=== PATIENT | female | born 1970 | race Caucasian/White ===

== ENCOUNTER 2017-02-16 13:54 | Emergency (ER) | payer OTHER ==
[2017-02-16 13:57] VITALS: BMI 28.3
--- NOTE | 2017-02-16 14:11 | ED PDOC ---
Arrival/HPI - General Chief Complaint: Chest Pain Time Seen by Provider: 02/16/17 14:03 Historian: Patient - History of Present Illness Narrative History of Present Illness (Text): 02/16/17 14:11 A 46 year old female, whose past medical history includes hyperlipidemia, presents to the emergency department complaining of intermittent chest pain for the past few days. 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 Patient states she last experienced the pain at 10:00 this morning. Patient is unable to describe her pain and reports it last minutes at a time. When asked patient states her pain is not associated with cough or food digestion but is unsure if it could be anxiety. Patient denies any trauma, fever, nausea, vomiting, diarrhea, abdominal pain, shortness of breath or any other complaints. PMD: Dr. Wolf Time/Duration: < week, Other (10:00 this morning) Symptom Course: Intermittent Quality: Other Context: Home Past Medical History - Provider Review Nursing Documentation Reviewed: Yes - Infectious Disease Hx of Infectious Diseases: None - Tetanus Immunization Tetanus Immunization: Up to Date - Cardiac Hx Cardiac Disorders: No - Pulmonary Hx Respiratory Disorders: Yes Hx Asthma: Yes - Neurological Hx Neurological Disorder: No - HEENT Hx HEENT Disorder: No - Renal Hx Renal Disorder: No - Endocrine/Metabolic Hx Endocrine Disorders: No - Hematological/Oncological Hx Blood Disorders: No - Integumentary Hx Dermatological Disorder: No - Musculoskeletal/Rheumatological Hx Musculoskeletal Disorders: No - Gastrointestinal Hx Gastrointestinal Disorders: Yes Hx Gall Bladder Disease: Yes - Genitourinary/Gynecological Hx Genitourinary Disorders: No - Psychiatric Hx Psychophysiologic Disorder: No Hx Substance Use: No - Surgical History Hx Cholecystectomy: Yes - Anesthesia Hx Anesthesia: Yes Hx Anesthesia Reactions: No Hx Malignant Hyperthermia: No - Suicidal Assessment Feels Threatened In Home Enviroment: No Family/Social History - Physician Review Nursing Documentation Reviewed: Yes Family/Social History: CAD/[place] Smoking Status: Never Smoked Hx Alcohol Use: No Hx Substance Use: No Hx Substance Use Treatment: No Allergies/Home Meds Allergies/Adverse Reactions: Allergies aminophylline Allergy (Verified 02/16/17 14:00) RASH aspirin Allergy (Verified 02/16/17 14:00) RASH banana Allergy (Verified 02/16/17 14:00) RASH diclofenac potassium [From Cataflam] Allergy (Verified 02/16/17 14:00) RASH diclofenac sodium [From Voltaren] Allergy (Verified 02/16/17 14:00) RASH zena Allergy (Verified 02/16/17 14:00) RASH Penicillins Allergy (Verified 02/16/17 14:00) RASH potassium Allergy (Verified 02/16/17 14:00) RASH seafood Allergy (Mild, Uncoded 02/16/17 14:00) RASH Home Medications: Home Meds Medication Instructions Recorded Confirmed No Known Home Med [No Known Home 07/06/15 02/16/17 Med] Review of Systems - Physician Review All systems were reviewed & negative as marked: Yes - Review of Systems Constitutional: absent: Fevers Respiratory: absent: SOB Cardiovascular: Chest Pain Gastrointestinal: absent: Abdominal Pain, Diarrhea, Nausea, Vomiting Physical Exam Vital Signs Pulse Resp BP Pulse Ox 02/16/17 13:55 64 20 131/86 100 Appearance: Positive for: Well-Appearing, Non-Toxic, Comfortable Pain Distress: None Mental Status: Positive for: Alert and Oriented X 3 - Systems Exam Head: Present: Atraumatic, Normocephalic Pupils: Present: PERRL Extroacular Muscles: Present: EOMI Conjunctiva: Present: Normal Mouth: Present: Moist Mucous Membranes Neck: Present: Normal Range of Motion Respiratory/Chest: Present: Clear to Auscultation, Good Air Exchange. No: Respiratory Distress, Accessory Muscle Use, Tender to Palpation Cardiovascular: Present: Regular Rate and Rhythm, Normal S1, S2. No: Murmurs Abdomen: Present: Normal Bowel Sounds. No: Tenderness, Distention, Peritoneal Signs Back: Present: Normal Inspection Upper Extremity: Present: Normal Inspection. No: Cyanosis, Edema Lower Extremity: Present: Normal Inspection, NORMAL PULSES. No: Edema, CALF TENDERNESS Neurological: Present: GCS=15, CN II-XII Intact, Speech Normal Skin: Present: Warm, Dry, Normal Color. No: Rashes Psychiatric: Present: Alert, Oriented x 3, Normal Insight, Normal Concentration Medical Decision Making ED Course and Treatment: 02/16/17 14:11 Impression: A 46 year old female with intermittent chest pain. Differential Diagnosis included but are not limited to: Chest pain rule out ACS vs. Anxiety Plan: -- Chest xray -- EKG -- Labs -- Reassess and disposition Progress Notes: EKG shows NSR at [address]-segment elevations, normal intervals. Interpreted by me. 02/16/17 15:56 Labs reviewed. Troponin negative. Case discussed with Dr. Wolf who would like patient to stay in the hospital of observation considering her clinical picture and family history of CAD. Patient agrees to stay in the hospital. - Lab Interpretations Lab Results: 02/16/17 14:30 02/16/17 14:30 Lab Results 02/16/17 14:30: WBC 4.9, RBC 4.19, Hgb 12.3, Hct 36.5, MCV 87.1, MCH 29.4, MCHC 33.7, RDW 13.7, Plt Count 321, MPV 11.6 H, Gran % 43.2 L, Lymph % (Auto) 45.6 H , [place] % (Auto) 9.4 H, Eos % (Auto) 1.4 L, Baso % (Auto) 0.4, Gran # 2.10, Lymph # 2.2, [place] # 0.5, Eos # 0.1, Baso # 0.02, Sodium 140, Potassium 3.6, Chloride 103, Carbon Dioxide 27, Anion Gap 14, BUN 13, Creatinine 0.6, Est GFR ( Amer) > 60, Est GFR (Non-Af Amer) > 60, Random Glucose 83, Calcium 9.1, Magnesium 2.0, Total Bilirubin 0.6, AST 29, ALT 8, Alkaline Phosphatase 69, Lactate Dehydrogenase 392, Total Creatine Kinase 58, Troponin I < 0.01, Total Protein 7.7, Albumin 4.0, Globulin 3.7, Albumin/Globulin Ratio 1.1 I have reviewed the lab results: Yes Interpretation: No clinic. lab abnormalty - RAD Interpretation Radiology Orders: 02/16/17 14:28 CHEST PORTABLE [RAD] Stat CXR nl. [employer] Manager: ED Physician - Scribe Statement The provider has reviewed the documentation as recorded by the Kalaniibparamjit Esquivel Provider Scribe Attestation: All medical record entries made by the Scribe were at my direction and personally dictated by me. I have reviewed the chart and agree that the record accurately reflects my personal performance of the history, physical exam, medical decision making, and the department course for this patient. I have also personally directed, reviewed, and agree with the discharge instructions and disposition. Disposition/Present on Arrival - Present on Arrival Any Indicators Present on Arrival: No History of DVT/PE: No History of Uncontrolled Diabetes: No Urinary Catheter: No History of Decub. Ulcer: No History Surgical Site Infection Following: None - Disposition Have Diagnosis and Disposition been Completed?: Yes Diagnosis: Chest pain Disposition: HOSPITALIZED Disposition Time: 15:57 Patient Plan: Observation Condition: FAIR Discharge Instructions (ExitCare): Chest Pain (ED)
[2017-02-16 14:39] LABS: ADD MANUAL DIFF? NO
[2017-02-16 14:46] LABS: BASO # 0.02 K/mm3 (0.0-2.0); BASO % 0.4 % (0.0-3.0); EOS # 0.1 (0.0-0.7); EOS % 1.4 % (1.5-5.0); GRAN % 43.2 % (50.0-68.0); HEMATOCRIT 36.5 % (36.0-48.0); LYMPH # 2.2 (1.2-3.4); LYMPH % 45.6 % (22.0-35.0); MEAN CELL VOLUME 87.1 fL (80.0-105.0); MEAN CORPUSCULAR HEMOGLOBIN 29.4 pg (25.0-35.0); MEAN CORPUSCULAR HGB CONC 33.7 g/dl (31.0-37.0); MEAN PLATELET VOLUME 11.6 fl (7.0-11.0); MONO # 0.5 (0.1-0.6); MONO % 9.4 % (1.0-6.0); PLATELET COUNT 321 10^3/uL (120.0-450.0); RED CELL DISTRIBUTION WIDTH 13.7 % (11.5-14.5); WHITE BLOOD COUNT 4.9 10^3/ul (4.5-11.0)
[2017-02-16 14:50] VITALS: O2SAT 100
[2017-02-16 14:52] LABS: ALB/GLOB RATIO 1.1 (1.1-1.8); ALKALINE PHOSPHATASE 69 U/L (38-133); ALT/SGPT 8 U/L (7-56); AST/SGOT 29 U/L (15-39); BILIRUBIN,TOTAL 0.6 mg/dL (0.2-1.3); BLOOD UREA NITROGEN 13 mg/dL (7-21); CALCIUM 9.1 mg/dL (8.4-10.5); CARBON DIOXIDE 27 mmol/L (21-33); CHLORIDE 103 mmol/L (98-107); GFR AFRICAN-AMERICAN > 60; GLUCOSE,RANDOM 83 mg/dL (70-110); POTASSIUM 3.6 mmol/L (3.6-5.0); SODIUM 140 mmol/L (132-148); TOTAL PROTEIN 7.7 g/dL (5.8-8.3)
[2017-02-16 15:09] LABS: TROPONIN I < 0.01 ng/mL
[2017-02-16 17:56] VITALS: BP 118/79; PULSE 62; RESP 18; TEMP 98.2
--- NOTE | 2017-02-17 07:52 | RAD ---
HISTORY: chest pain COMPARISON: No prior. FINDINGS: LUNGS: The lungs are well inflated and clear. PLEURA: No significant pleural effusion identified, no pneumothorax apparent. CARDIOVASCULAR: Normal. OSSEOUS STRUCTURES: No significant abnormalities. VISUALIZED UPPER ABDOMEN: Normal. OTHER FINDINGS: None. IMPRESSION: No active pulmonary disease.
--- NOTE | 2017-02-17 12:09 | CARD ---
APPROVED REPORT EKG Measurement Heart [id number] 130P44 [id number] <Conclusion> Normal sinus rhythm Cannot rule out Anterior infarct, age undetermined Abnormal ECG
== END 2017-02-16 17:30 | disposition left against medical advice (07) ==
LOC: ED 13:54 → UNDOADMOB 15:55 → ERH 15:55 → ED 17:30
DX: R07.9 Chest pain, unspecified (principal); Z82.49 Family history of ischemic heart disease and other diseases of the circulatory system

== ENCOUNTER 2017-05-19 05:38 | Emergency (ER) | payer OTHER ==
[2017-05-19 05:44] VITALS: BMI 27.3
[2017-05-19] MEDS ORDERED: DiphenhydrAMINE 50 mg/ml Inj IVP ONE (05:47)
[2017-05-19 05:48] VITALS: TEMP 97; O2SAT 100
--- NOTE | 2017-05-19 05:48 | ED PDOC ---
Arrival/HPI - General Time Seen by Provider: 05/19/17 05:45 Historian: Patient - History of Present Illness Narrative History of Present Illness (Text): 05/19/17 05:45 Caity Anderson is a 46 year old female who presents to the emergency department complaining of an allergic reaction after eating an eggplant about an hour ago. Patient indicates that she has diffuse hives with redness and experiences shortness of breath. Patient denies any fever, chills, chest pain, vomiting, diarrhea, urinary symptoms, back pain, neck pain, dizziness, or any other complaints. Time/Duration: 1 hour Symptom Onset: Sudden Symptom Course: Unchanged Severity Level: Mild Activities at Onset: Eating Context: Home Past Medical History - Provider Review Nursing Documentation Reviewed: Yes - Infectious Disease Hx of Infectious Diseases: None - Tetanus Immunization Tetanus Immunization: Up to Date - Cardiac Hx Cardiac Disorders: No - Pulmonary Hx Respiratory Disorders: Yes Hx Asthma: Yes - Neurological Hx Neurological Disorder: No - HEENT Hx HEENT Disorder: No - Renal Hx Renal Disorder: No - Endocrine/Metabolic Hx Endocrine Disorders: No - Hematological/Oncological Hx Blood Disorders: No - Integumentary Hx Dermatological Disorder: No - Musculoskeletal/Rheumatological Hx Musculoskeletal Disorders: No - Gastrointestinal Hx Gastrointestinal Disorders: Yes Hx Gall Bladder Disease: Yes - Genitourinary/Gynecological Hx Genitourinary Disorders: No - Psychiatric Hx Psychophysiologic Disorder: No Hx Substance Use: No - Surgical History Hx Cholecystectomy: Yes - Anesthesia Hx Anesthesia: Yes Hx Anesthesia Reactions: No Hx Malignant Hyperthermia: No - Suicidal Assessment Feels Threatened In Home Enviroment: No Family/Social History - Physician Review Nursing Documentation Reviewed: Yes Family/Social History: No Known Family HX Smoking Status: Never Smoked Hx Alcohol Use: No Hx Substance Use: No Hx Substance Use Treatment: No Allergies/Home Meds Allergies/Adverse Reactions: Allergies aminophylline Allergy (Verified 02/16/17 14:00) RASH aspirin Allergy (Verified 02/16/17 14:00) RASH banana Allergy (Verified 02/16/17 14:00) RASH diclofenac potassium [From Cataflam] Allergy (Verified 02/16/17 14:00) RASH diclofenac sodium [From Voltaren] Allergy (Verified 02/16/17 14:00) RASH zena Allergy (Verified 02/16/17 14:00) RASH Penicillins Allergy (Verified 02/16/17 14:00) RASH potassium Allergy (Verified 02/16/17 14:00) RASH seafood Allergy (Mild, Uncoded 02/16/17 14:00) RASH Review of Systems - Physician Review All systems were reviewed & negative as marked: Yes - Review of Systems Constitutional: Other (Allergic reaction). absent: Fevers, Night Sweats Eyes: absent: Vision Changes ENT: absent: Hearing Changes Respiratory: SOB. absent: Cough Cardiovascular: absent: Chest Pain Gastrointestinal: absent: Abdominal Pain Genitourinary Female: absent: Dysuria Musculoskeletal: absent: Arthralgias Skin: Other (hives with redness) Neurological: absent: Headache Hemo/Lymphatic: absent: Adenopathy Psychiatric: absent: Anxiety Physical Exam Vital Signs Reviewed: Yes Vital Signs Temp Pulse Resp BP Pulse Ox 05/19/17 05:44 97 F L 90 18 130/82 100 Temperature: Hypothermic Blood Pressure: Normal Pulse: Regular Respiratory Rate: Normal Appearance: Positive for: Well-Appearing, Non-Toxic, Comfortable Pain Distress: None Mental Status: Positive for: Alert and Oriented X 3 - Systems Exam Head: Present: Atraumatic, Normocephalic Pupils: Present: PERRL Extroacular Muscles: Present: EOMI Conjunctiva: Present: Normal Mouth: Present: Moist Mucous Membranes Neck: Present: Normal Range of Motion Respiratory/Chest: Present: Clear to Auscultation, Good Air Exchange. No: Respiratory Distress, Accessory Muscle Use Cardiovascular: Present: Regular Rate and Rhythm, Normal S1, S2. No: Murmurs Abdomen: Present: Normal Bowel Sounds. No: Tenderness, Distention, Peritoneal Signs Back: Present: Normal Inspection Upper Extremity: Present: Normal Inspection. No: Cyanosis, Edema Lower Extremity: Present: Normal Inspection. No: Edema Neurological: Present: GCS=15, CN II-XII Intact, Speech Normal Skin: Present: Erythematous, Other (Urticaria) Psychiatric: Present: Alert, Oriented x 3, Normal Insight, Normal Concentration Medical Decision Making ED Course and Treatment: 05/19/17 05:45 Impression: 46 year old female complaining of an allertgic reaction with urticaria and shortness of breath after eating an eggplant about an hour ago. Differential Diagnosis included but are not limited to: Allergic Reaction Plan: -- Benadryl and Solu-medrol -- Reassess and disposition Prior Visits: Notes and results from previous visits were reviewed. Patient last seen in the ED on 02/16/17 for intermittent chest pain for a few days. Patient was admitted to hospitalist care for further evaluation. Progress Notes: Re-evaluation Time: 06:58 Reassessment Condition: Re-examined, Improved - Medication Orders Current Medication Orders: Discontinued Medications Albuterol/Ipratropium (Duoneb 3 Mg/0.5 Mg (3 Ml) Ud) 3 ml IH STAT STA Stop: 05/19/17 06:08 Last Admin: 05/19/17 06:26 Dose: Not Given Non-Admin Reason: Patient Refused Diphenhydramine HCl (Benadryl) 25 mg IVP ONCE ONE Stop: 05/19/17 05:48 Last Admin: 05/19/17 06:10 Dose: 25 mg Epinephrine HCl (Epinephrine) 0.3 mg SC STAT STA Stop: 05/19/17 06:09 Last Admin: 05/19/17 06:20 Dose: 0.3 mg Epinephrine HCl (Epinephrine) Confirm Administered Dose 1 mg .ROUTE .STK-MED ONE Stop: 05/19/17 06:14 Last Admin: 05/19/17 06:25 Dose: Famotidine (Pepcid 20mg/50ml Premix) 20 mg in 50 mls @ 100 mls/hr IVPB STAT STA Stop: 05/19/17 06:39 Last Admin: 05/19/17 06:28 Dose: 100 mls/hr Methylprednisolone (Solu-Medrol) 125 mg IVP ONCE ONE Stop: 05/19/17 05:48 Last Admin: 05/19/17 06:11 Dose: 125 mg - Scribe Statement The provider has reviewed the documentation as recorded by the Tae Ordoñez Provider Scribe Attestation: All medical record entries made by the Tae were at my direction and personally dictated by me. I have reviewed the chart and agree that the record accurately reflects my personal performance of the history, physical exam, medical decision making, and the department course for this patient. I have also personally directed, reviewed, and agree with the discharge instructions and disposition. Disposition/Present on Arrival - Present on Arrival Any Indicators Present on Arrival: No History of DVT/PE: No History of Uncontrolled Diabetes: No Urinary Catheter: No History Surgical Site Infection Following: None - Disposition Have Diagnosis and Disposition been Completed?: Yes Diagnosis: Allergic reaction to food Disposition: HOME/ ROUTINE Disposition Time: 06:59 Condition: GOOD Discharge Instructions (ExitCare): Urticaria (GEN) Prescriptions: Famotidine [Pepcid] 20 mg PO BID #10 tab predniSONE [predniSONE Tab] 20 mg PO TID #15 tab hydrOXYzine Pamoate [Vistaril] 25 mg PO QID #12 cap
[2017-05-19] MEDS ORDERED: Albuterol-Ipratrop 3 mg / 0.5 (3 ml) UD IH STA (06:07)
[2017-05-19] MEDS ORDERED: EPINEPHrine 1 mg/ml (1:1000) Inj SC STA (06:08)
[2017-05-19] MEDS ORDERED: Famotidine 20mg/50ml 20 MG/50 ML BAG IVPB STA (06:10)
[2017-05-19] MEDS ORDERED: EPINEPHrine 1 mg/ml (1:1000) Inj ONE (06:13)
[2017-05-19 07:13] VITALS: BP 113/61; PULSE 68; RESP 17
== END 2017-05-19 07:11 | disposition home or self-care (01) ==
LOC: ED 05:38
DX: T78.1XXA Other adverse food reactions, not elsewhere classified, initial encounter (principal); L50.9 Urticaria, unspecified; X58.XXXA Exposure to other specified factors, initial encounter
CPT/HCPCS: 96365; 96372; 96375; 99283; J0171; J1200; J2930

== ENCOUNTER 2017-07-07 17:31 | Observation (INO) | payer OTHER ==
[2017-07-07 17:31] VITALS: BMI 27.3
--- NOTE | 2017-07-07 18:00 | ED PDOC ---
Arrival/HPI - General Chief Complaint: Chest Pain Time Seen by Provider: 07/07/17 17:35 Historian: Patient - History of Present Illness Narrative History of Present Illness (Text): 07/07/17 17:50 A 46 year old female, whose past medical history includes hyperlipidemia, allergies, and asthma presents to the emergency department complaining of chest pain, which began prior to entering the emergency department. The patient states she was chasing after a bus and began to have palpitations with associated chest pains and shortness of breath. She notes the chest pain has subsided over a period of time, but still comes and goes to a mild extent. The patient admits to knowing her family has a history of heart disease. She denies any fever, nausea, vomiting, headaches, body aches, vision changes, or any other complaints at this time. PMD: Dr. Wolf Symptom Onset: Sudden Symptom Course: Unchanged Activities at Onset: Significant (Trying to catch the bus) Context: Street, Pedestrian Past Medical History - Provider Review Nursing Documentation Reviewed: Yes - Infectious Disease Hx of Infectious Diseases: None - Tetanus Immunization Tetanus Immunization: Up to Date - Cardiac Hx Cardiac Disorders: No - Pulmonary Hx Respiratory Disorders: Yes Hx Asthma: Yes - Neurological Hx Neurological Disorder: No - HEENT Hx HEENT Disorder: No - Renal Hx Renal Disorder: No - Endocrine/Metabolic Hx Endocrine Disorders: No - Hematological/Oncological Hx Blood Disorders: No - Integumentary Hx Dermatological Disorder: No - Musculoskeletal/Rheumatological Hx Musculoskeletal Disorders: No - Gastrointestinal Hx Gastrointestinal Disorders: Yes Hx Gall Bladder Disease: Yes - Genitourinary/Gynecological Hx Genitourinary Disorders: No - Psychiatric Hx Psychophysiologic Disorder: No Hx Substance Use: No - Surgical History Hx Cholecystectomy: Yes - Anesthesia Hx Anesthesia: Yes Hx Anesthesia Reactions: No Hx Malignant Hyperthermia: No - Suicidal Assessment Feels Threatened In Home Enviroment: No Family/Social History - Physician Review Nursing Documentation Reviewed: Yes Family/Social History: Other (Heart disease) Smoking Status: Never Smoked Hx Alcohol Use: No Hx Substance Use: No Hx Substance Use Treatment: No Allergies/Home Meds Allergies/Adverse Reactions: Allergies aminophylline Allergy (Verified 02/16/17 14:00) RASH aspirin Allergy (Verified 02/16/17 14:00) RASH banana Allergy (Verified 02/16/17 14:00) RASH diclofenac potassium [From Cataflam] Allergy (Verified 02/16/17 14:00) RASH diclofenac sodium [From Voltaren] Allergy (Verified 02/16/17 14:00) RASH zena Allergy (Verified 02/16/17 14:00) RASH Penicillins Allergy (Verified 02/16/17 14:00) RASH potassium Allergy (Verified 02/16/17 14:00) RASH seafood Allergy (Mild, Uncoded 02/16/17 14:00) RASH Review of Systems - Physician Review All systems were reviewed & negative as marked: Yes - Review of Systems Constitutional: absent: Fevers Eyes: absent: Vision Changes Respiratory: SOB Cardiovascular: Chest Pain, Palpitations Gastrointestinal: absent: Nausea, Vomiting Musculoskeletal: absent: Back Pain, Neck Pain Neurological: absent: Headache Physical Exam Vital Signs Reviewed: Yes Vital Signs Temp Pulse Resp BP Pulse Ox 07/07/17 19:04 71 111/87 100 07/07/17 17:32 18 100 07/07/17 17:31 97.9 F 89 18 150/104 H 99 Temperature: Afebrile Blood Pressure: Hypertensive Pulse: Regular Respiratory Rate: Normal Appearance: Positive for: Well-Appearing, Non-Toxic, Comfortable Pain Distress: None Mental Status: Positive for: Alert and Oriented X 3 - Systems Exam Head: Present: Atraumatic, Normocephalic Pupils: Present: PERRL Conjunctiva: Present: Normal Mouth: Present: Moist Mucous Membranes Pharnyx: Present: Normal. No: ERYTHEMA, EXUDATE Neck: Present: Normal Range of Motion Respiratory/Chest: Present: Clear to Auscultation, Good Air Exchange. No: Respiratory Distress, Accessory Muscle Use Cardiovascular: Present: Regular Rate and Rhythm, Normal S1, S2. No: Murmurs Abdomen: Present: Normal Bowel Sounds. No: Tenderness, Distention, Peritoneal Signs Back: Present: Normal Inspection Upper Extremity: Present: Normal Inspection. No: Cyanosis, Edema Lower Extremity: Present: Normal Inspection. No: Edema Neurological: Present: GCS=15, CN II-XII Intact, Speech Normal Skin: Present: Warm, Dry, Normal Color. No: Rashes Psychiatric: Present: Alert, Oriented x 3, Normal Insight, Normal Concentration Medical Decision Making ED Course and Treatment: 07/07/17 18:02 Impression: A 46 year old female with chest pain. Differential Diagnosis included but are not limited to: ACS vs anxiety vs PE vs GERD vs asthma vs muscular pain Plan: -- EKG -- Chest X-ray -- Labs -- Urinalysis -- Reassess and disposition Prior Visits: Notes and results from previous visits were reviewed. The patient was last seen in the emergency department on 05/19/17 for an allergic reaction. The patient was discharged routine home. Progress Notes: EKG: Ordered, reviewed, and independently interpreted the EKG. Rate : 73 BPM Rhythm : NSR Interpretation : Normal intervals, normal axis, no ST/T changes. Comparison : No previous EKG for comparison. CT Angiography Chest With Intravenous Contrast EXAM DATE/TIME:07/07/2017 6:40 PM CLINICAL HISTORY:46 years old, female; Pain; Chest pain; Type not specified COMPARISON:Prior chest radiographs of 02/16/2017 FINDINGS: LIMITATIONS: Moderate respiratory motion artifact. PULMONARY ARTERIES: Exam is somewhat limited for the detection of pulmonary emboli secondary to respiratory motion artifact. Allowing for this, no definite pulmonary emboli are seen. AORTA: No evidence of aortic dissection. LUNGS: Lungs appear grossly clear, allowing for respiratory motion artifact. No evidence of significant focal consolidation/infiltrate in the lungs. No evidence of diffuse pulmonary vascular congestion. PLEURAL SPACE: No pneumothorax or pleural effusions seen. HEART: No evidence of significant pericardial effusion. MEDIASTINUM: Small hiatal hernia. THYROID: Incidental 2.2 x 1.1 cm right thyroid nodule. Recommend thyroid ultrasound or scintigraphy for further evaluation, given the size of this nodule, on a nonemergent basis, unless otherwise clinically indicated.. BONES/JOINTS: No acute bony abnormality identified. SOFT TISSUES: No acute abnormality of the visualized soft tissues seen. LYMPH NODES: No evidence of diffuse lymphadenopathy. IMPRESSION: - No evidence of pulmonary embolism or other significant acute abnormality in the chest, allowing for motion artifact. - Incidental thyroid nodule. See above. - See above for remaining findings. 07/07/17 21:10 Patient with noted history of chest pain with h/o hyperlipidemia and FH of heart disease here in the emergency department with exertional chest pain. Initial EKG is unremarkable as are CE; d-dimer was elevated. CTA of the chest shows no PE - she will need further observation on tele for evaluation and treatment. Case was discussed with Dr. Concepcion for placement on the hospitalist' s service. - Lab Interpretations Lab Results: 07/07/17 18:04 07/07/17 18:04 Lab Results 07/07/17 18:30: Urine Color Yellow, Urine Appearance Sl cloudy, Urine pH 7.0, Ur Specific [place] 1.020, Urine Protein Negative, Urine Glucose (UA) Negative, Urine Ketones Negative, Urine Blood Large H, Urine Nitrate Negative, Urine Bilirubin Negative, Urine Urobilinogen 0.2, Ur Leukocyte Esterase Negative, Urine RBC 25 - 30, Urine WBC 0 - 2, Ur Epithelial Cells 3 - 4 07/07/17 18:04: Sodium 140, Potassium 3.4 L, Chloride 103, Carbon Dioxide 26, Anion Gap 14, BUN 19, Creatinine 0.7, Est GFR ( Amer) > 60, Est GFR (Non- Af Amer) > 60, Random Glucose 111 H, Calcium 9.0, Magnesium 1.9, Total Bilirubin 0.4, AST 29, ALT 50, Alkaline Phosphatase 76, Lactate Dehydrogenase 334, Total Creatine Kinase 53, Troponin I < 0.01, Total Protein 7.2, Albumin 4.1 , Globulin 3.1, Albumin/Globulin Ratio 1.3, Lipase 61 07/07/17 18:04: PT 10.8, INR 1.00, APTT 25.5, D-Dimer, Quantitative 0.94 H 07/07/17 18:04: WBC 5.6, RBC 4.05, Hgb 11.8 L, Hct 34.7 L, MCV 85.7, MCH 29.1, MCHC 34.0, RDW 13.4, Plt Count 304, MPV 11.0, Gran % 46.5 L, Lymph % (Auto) 44.7 H, [place] % (Auto) 5.9, Eos % (Auto) 2.7, Baso % (Auto) 0.2, Gran # 2.62, Lymph # 2.5, [place] # 0.3, Eos # 0.2, Baso # 0.01 I have reviewed the lab results: Yes - RAD Interpretation Radiology Orders: 07/07/17 17:53 CHEST PORTABLE [RAD] Stat 07/07/17 18:40 ANGIO CHEST PE PROTOCOL [CT] Stat - EKG Interpretation Interpreted by ED Physician: Yes - Medication Orders Current Medication Orders: Famotidine (Pepcid) 20 mg PO 1000,2200 KYLIE Heparin Sodium (Porcine) (Heparin) 5,000 units SC Q12 KYLIE PRN Reason: Protocol Discontinued Medications Iohexol (Omnipaque 350 100 Ml) Confirm Administered Dose 350 mg .ROUTE .STK-MED ONE Stop: 07/07/17 18:46 - PA / SUPPLY ANALYST / Resident Statement MD/DO has reviewed & agrees with the documentation as recorded. - Scribe Statement The provider has reviewed the documentation as recorded by the Scribe Kacie Vyas Provider Scribe Attestation: All medical record entries made by the Scribe were at my direction and personally dictated by me. I have reviewed the chart and agree that the record accurately reflects my personal performance of the history, physical exam, medical decision making, and the department course for this patient. I have also personally directed, reviewed, and agree with the discharge instructions and disposition. Disposition/Present on Arrival - Present on Arrival Any Indicators Present on Arrival: No History of DVT/PE: No History of Uncontrolled Diabetes: No Urinary Catheter: No History of Decub. Ulcer: No History Surgical Site Infection Following: None - Disposition Have Diagnosis and Disposition been Completed?: Yes Diagnosis: Chest pain Disposition: HOSPITALIZED Disposition Time: 18:45 Patient Plan: Observation, Telemetry Condition: FAIR
[2017-07-07 18:11] LABS: BASO # 0.01 K/mm3 (0.0-2.0); BASO % 0.2 % (0.0-3.0); EOS # 0.2 (0.0-0.7); EOS % 2.7 % (1.5-5.0); GRAN # 2.62 (1.4-6.5); GRAN % 46.5 % (50.0-68.0); HEMOGLOBIN 11.8 g/dL (12.0-16.0); LYMPH # 2.5 (1.2-3.4); LYMPH % 44.7 % (22.0-35.0); MEAN CELL VOLUME 85.7 fl (80.0-105.0); MEAN CORPUSCULAR HEMOGLOBIN 29.1 pg (25.0-35.0); MONO # 0.3 (0.1-0.6); MONO % 5.9 % (1.0-6.0); PLATELET COUNT 304 10^3/uL (120.0-450.0); RBC 4.05 10^6/uL (3.5-6.1); RED CELL DISTRIBUTION WIDTH 13.4 % (11.5-14.5); WHITE BLOOD COUNT 5.6 10^3/ul (4.5-11.0)
[2017-07-07 18:20] LABS: ALB/GLOB RATIO 1.3 (1.1-1.8); ALBUMIN 4.1 g/dL (3.0-4.8); ALT/SGPT 50 U/L (7-56); AST/SGOT 29 U/L (15-39); BLOOD UREA NITROGEN 19 mg/dL (7-21); GFR AFRICAN-AMERICAN > 60; GFR NON-AFRICAN AMERICAN > 60; LIPASE 61 U/L (23-300); MAGNESIUM 1.9 mg/dL (1.7-2.2)
[2017-07-07 18:29] LABS: PARTIAL THROMBOPLASTIN TIME 25.5 Seconds (23.7-30.8); PROTHROMBIN TIME 10.8 Seconds (9.9-11.8)
[2017-07-07 18:31] LABS: D DIMER 0.94 mg/L FEU (0-0.50)
[2017-07-07 18:34] LABS: TROPONIN I < 0.01 ng/mL
[2017-07-07 18:45] LABS: URINE BILIRUBIN NEGATIVE (NEGATIVE); URINE BLOOD LARGE (NEGATIVE); URINE GLUCOSE (UA) NEGATIVE (NEGATIVE); URINE LEUKOCYTE ESTERASE NEGATIVE Leu/uL (NEGATIVE); URINE NITRATE NEGATIVE (NEGATIVE); URINE PROTEIN NEGATIVE mg/dL (<30 mg/dL); URINE UROBILINOGEN 0.2 E.U./dL (<1 E.U./dL)
[2017-07-07] MEDS ORDERED: Iohexol 350 MG/100 ML VIAL ONE (18:45)
[2017-07-07 19:04] LABS: URINE APPEARANCE SL CLOUDY (CLEAR); URINE COLOR YELLOW (YELLOW)
[2017-07-07 19:05] LABS: URINE RBC 25 - 30 /hpf (0-2); URINE WBC 0 - 2 /hpf (0-6)
--- NOTE | 2017-07-07 20:04 | CP.PCM.HP ---
<Kacie Hutchins - Last Filed: 07/07/17 20:22> History of Present Illness - History of Present Illness History of Present Illness: History and Physical for Dr. Bojorquez 46F presents with chest pain that began after chasing after a bus. She said it happened two other times before this past week. Patient's PMH: hyperlipidemia, allergies, and asthma. Patient admitted to palpitations with sharp pain, which was associated chest pains and shortness of breath. Patient states it subsided over a period of time and comes and goes. She stated the pain lasted only for a few minutes. Patient denies Fever, Nausea, vomiting, vomiting, headaches, body ache, vision changes, or other any other complaints at the time. Patient was brought to get a CTA for a positive d-dimer to rule out a PE. FHx: Mother has blood clots in her leg. The patient admits to knowing her family has a history of heart disease. Sister has leukemia SHx: cholecystectomy Allergies: aminophylline, aspirine, banana, diclofenac potassium Present on Admission - Present on Admission Any Indicators Present on Admission: No History of DVT/PE: No History of Uncontrolled Diabetes: No Urinary Catheter: No Decubitus Ulcer Present: No Past Patient History - Infectious Disease Hx of Infectious Diseases: None - Tetanus Immunizations Tetanus Immunization: Up to Date - Past Social History Smoking Status: Never Smoked - CARDIAC Hx Cardiac Disorders: No - PULMONARY Hx Respiratory Disorders: Yes Hx Asthma: Yes - NEUROLOGICAL Hx Neurological Disorder: No - HEENT Hx HEENT Problems: No - RENAL Hx Chronic Kidney Disease: No - ENDOCRINE/METABOLIC Hx Endocrine Disorders: No - HEMATOLOGICAL/ONCOLOGICAL Hx Blood Disorders: No - INTEGUMENTARY Hx Dermatological Problems: No - MUSCULOSKELETAL/RHEUMATOLOGICAL Hx Musculoskeletal Disorders: No - GASTROINTESTINAL Hx Gastrointestinal Disorders: Yes Hx Gall Bladder Disease: Yes - GENITOURINARY/GYNECOLOGICAL Hx Genitourinary Disorders: No - PSYCHIATRIC Hx Psychophysiologic Disorder: No Hx Substance Use: No - SURGICAL HISTORY Hx Cholecystectomy: Yes - ANESTHESIA Hx Anesthesia: Yes Hx Anesthesia Reactions: No Hx Malignant Hyperthermia: No Meds Allergies/Adverse Reactions: Allergies Allergy/AdvReac Type Severity Reaction Status Date / Time aminophylline Allergy RASH Verified 02/16/17 14:00 aspirin Allergy RASH Verified 02/16/17 14:00 banana Allergy RASH Verified 02/16/17 14:00 diclofenac potassium Allergy RASH Verified 02/16/17 14:00 [From Cataflam] diclofenac sodium Allergy RASH Verified 02/16/17 14:00 [From Voltaren] zena Allergy RASH Verified 02/16/17 14:00 Penicillins Allergy RASH Verified 02/16/17 14:00 potassium Allergy RASH Verified 02/16/17 14:00 seafood Allergy Mild RASH Uncoded 02/16/17 14:00 Physical Exam - Constitutional Appears: Non-toxic - Head Exam Head Exam: NORMAL INSPECTION - Eye Exam Eye Exam: EOMI, Normal appearance - ENT Exam ENT Exam: Mucous Membranes Moist - Neck Exam Neck exam: Positive for: Normal Inspection - Respiratory Exam Respiratory Exam: Clear to Auscultation Bilateral, NORMAL BREATHING PATTERN. absent: Accessory Muscle Use, Respiratory Distress - Cardiovascular Exam Cardiovascular Exam: REGULAR RHYTHM - GI/Abdominal Exam GI & Abdominal Exam: Normal Bowel Sounds, Soft. absent: Tenderness - Extremities Exam Extremities exam: Positive for: full ROM. Negative for: joint swelling, pedal edema - Back Exam Back exam: NORMAL INSPECTION - Neurological Exam Neurological exam: Alert, Normal Gait, Oriented x3 - Psychiatric Exam Psychiatric exam: Normal Affect, Normal Mood - Skin Skin Exam: Dry, Intact, Normal Color, Warm Results - Vital Signs Recent Vital Signs: Last Vital Signs Temp 97.9 F 07/07/17 17:31 Pulse 71 07/07/17 19:04 Resp 18 07/07/17 17:32 BP 111/87 07/07/17 19:04 Pulse Ox 100 07/07/17 19:04 - Labs Result Diagrams: 07/07/17 18:04 07/07/17 18:04 Labs: Laboratory Results - last 24 hr 07/07/17 07/07/17 07/07/17 18:04 18:04 18:04 WBC 5.6 RBC 4.05 Hgb 11.8 L Hct 34.7 L MCV 85.7 MCH 29.1 MCHC 34.0 RDW 13.4 Plt Count 304 MPV 11.0 Gran % 46.5 L Lymph % (Auto) 44.7 H [place] % (Auto) 5.9 Eos % (Auto) 2.7 Baso % (Auto) 0.2 Gran # 2.62 Lymph # 2.5 [place] # 0.3 Eos # 0.2 Baso # 0.01 PT 10.8 INR 1.00 APTT 25.5 D-Dimer, Quantitative 0.94 H Sodium 140 Potassium 3.4 L Chloride 103 Carbon Dioxide 26 Anion Gap 14 BUN 19 Creatinine 0.7 Est GFR ( Amer) > 60 Est GFR (Non-Af Amer) > 60 Random Glucose 111 H Calcium 9.0 Magnesium 1.9 Total Bilirubin 0.4 AST 29 ALT 50 Alkaline Phosphatase 76 Lactate Dehydrogenase 334 Total Creatine Kinase 53 Troponin I < 0.01 Total Protein 7.2 Albumin 4.1 Globulin 3.1 Albumin/Globulin Ratio 1.3 Lipase 61 Urine Color Urine Appearance Urine pH Ur Specific [place] Urine Protein Urine Glucose (UA) Urine Ketones Urine Blood Urine Nitrate Urine Bilirubin Urine Urobilinogen Ur Leukocyte Esterase Urine RBC Urine WBC Ur Epithelial Cells 07/07/17 18:30 WBC RBC Hgb Hct MCV MCH MCHC RDW Plt Count MPV Gran % Lymph % (Auto) [place] % (Auto) Eos % (Auto) Baso % (Auto) Gran # Lymph # [place] # Eos # Baso # PT INR APTT D-Dimer, Quantitative Sodium Potassium Chloride Carbon Dioxide Anion Gap BUN Creatinine Est GFR ( Amer) Est GFR (Non-Af Amer) Random Glucose Calcium Magnesium Total Bilirubin AST ALT Alkaline Phosphatase Lactate Dehydrogenase Total Creatine Kinase Troponin I Total Protein Albumin Globulin Albumin/Globulin Ratio Lipase Urine Color Yellow Urine Appearance Sl cloudy Urine pH 7.0 Ur Specific [place] 1.020 Urine Protein Negative Urine Glucose (UA) Negative Urine Ketones Negative Urine Blood Large H Urine Nitrate Negative Urine Bilirubin Negative Urine Urobilinogen 0.2 Ur Leukocyte Esterase Negative Urine RBC 25 - 30 Urine WBC 0 - 2 Ur Epithelial Cells 3 - 4 Assessment & Plan - Assessment and Plan (Free Text) Assessment: 46F presents with chest pain and a pmh of hyperlipidemia and asthma Plan: Chest Pain, r/o ACS f/u CTA, d-dimer positive Cardiac ISO Troponin I q6h X 3 TIMES CKMB q6h X 3 TIMES BNP q6h X 3 TIMES F/u BP monitoring f/u CBC Cardiology consult: Dr. Sabillon Diet: heart healthy diet Kacie Hutchins DO PGY1 - Date & Time Date: 07/07/17 Time: 20:22 <Luisa Concepcion - Last Filed: 07/07/17 21:46> Results - Vital Signs Recent Vital Signs: Last Vital Signs Temp 97.9 F 07/07/17 17:31 Pulse 71 07/07/17 19:04 Resp 18 07/07/17 17:32 BP 111/87 07/07/17 19:04 Pulse Ox 100 07/07/17 19:04 - Labs Result Diagrams: 07/07/17 18:04 07/07/17 18:04 Attending/Attestation - Attestation I have personally seen and examined this patient.: Yes I have fully participated in the care of the patient.: Yes I have reviewed all pertinent clinical information: Yes Notes (Text): 07/07/17 21:45 Patient was seen when she was in bed # 2 in the ER. Agree with history , physical examination, assessment and plan. 46 year old woman with history of asthma, hypercholesterolemia, multiple drug allergies ,GERD, reading glasses, anemia, family history of leukemia(Sister) , heart disease (mother,father, sister), lives alone in apartment in [place], is divorcee, , works as instructional aide, comes in with complaints of chest pain, sob, palpitations.
--- NOTE | 2017-07-07 20:53 | CT ---
EXAM: CT Angiography Chest With Intravenous Contrast EXAM DATE/TIME: 07/07/2017 6:40 PM CLINICAL HISTORY: 46 years old, female; Pain; Chest pain; Type not specified TECHNIQUE: Axial computed tomographic angiography images of the chest with intravenous contrast using pulmonary embolism protocol. All CT scans at this facility use one or more dose reduction techniques, viz.: automated exposure control; ma/kV adjustment per patient size (including targeted exams where dose is matched to indication; i.e. head); or iterative reconstruction technique. MIP reconstructed images were created and reviewed. Coronal and sagittal reformatted images were created and reviewed. CONTRAST: 100 mL of omni 350 administered intravenously. COMPARISON: Prior chest radiographs of 02/16/2017 FINDINGS: LIMITATIONS: Moderate respiratory motion artifact. PULMONARY ARTERIES: Exam is somewhat limited for the detection of pulmonary emboli secondary to respiratory motion artifact. Allowing for this, no definite pulmonary emboli are seen. AORTA: No evidence of aortic dissection. LUNGS: Lungs appear grossly clear, allowing for respiratory motion artifact. No evidence of significant focal consolidation/infiltrate in the lungs. No evidence of diffuse pulmonary vascular congestion. PLEURAL SPACE: No pneumothorax or pleural effusions seen. HEART: No evidence of significant pericardial effusion. MEDIASTINUM: Small hiatal hernia. THYROID: Incidental 2.2 x 1.1 cm right thyroid nodule. Recommend thyroid ultrasound or scintigraphy for further evaluation, given the size of this nodule, on a nonemergent basis, unless otherwise clinically indicated.. BONES/JOINTS: No acute bony abnormality identified. SOFT TISSUES: No acute abnormality of the visualized soft tissues seen. LYMPH NODES: No evidence of diffuse lymphadenopathy. IMPRESSION: - No evidence of pulmonary embolism or other significant acute abnormality in the chest, allowing for motion artifact. - Incidental thyroid nodule. See above. - See above for remaining findings.
--- NOTE | 2017-07-07 21:32 | CARD ---
APPROVED REPORT EKG Measurement Heart [id number] <Conclusion> Normal sinus rhythm Normal ECG
[2017-07-07 22:16] LABS: B-TYPE NATRIURETIC PEPTIDE 81.5 pg/mL (0-450)
[2017-07-07] MEDS: Potassium Chloride 20 mEq ER Tab PO STA ×2 (23:19→23:31)
[2017-07-08 06:51] VITALS: PULSE 83; O2SAT 99
--- NOTE | 2017-07-08 08:02 | RAD ---
HISTORY: chest pain COMPARISON: No prior. FINDINGS: LUNGS: No active pulmonary disease. PLEURA: No significant pleural effusion identified, no pneumothorax apparent. CARDIOVASCULAR: Top-normal heart size OSSEOUS STRUCTURES: No significant abnormalities. VISUALIZED UPPER ABDOMEN: Right upper quadrant cholecystectomy clips OTHER FINDINGS: None. IMPRESSION: No active disease.
[2017-07-08 08:43] LABS: BASO # 0.03 K/mm3 (0.0-2.0); BASO % 0.6 % (0.0-3.0); EOS # 0.1 (0.0-0.7); EOS % 2.5 % (1.5-5.0); GRAN # 1.89 (1.4-6.5); GRAN % 39.8 % (50.0-68.0); HEMOGLOBIN 12.3 g/dL (12.0-16.0); LYMPH # 2.4 (1.2-3.4); LYMPH % 50.4 % (22.0-35.0); MEAN CELL VOLUME 84.6 fl (80.0-105.0); MEAN CORPUSCULAR HEMOGLOBIN 29.2 pg (25.0-35.0); MEAN CORPUSCULAR HGB CONC 34.6 g/dl (31.0-37.0); MEAN PLATELET VOLUME 11.1 fl (7.0-11.0); MONO # 0.3 (0.1-0.6); MONO % 6.7 % (1.0-6.0); PLATELET COUNT 312 10^3/uL (120.0-450.0); RBC 4.21 10^6/uL (3.5-6.1); RED CELL DISTRIBUTION WIDTH 13.5 % (11.5-14.5); WHITE BLOOD COUNT 4.8 10^3/ul (4.5-11.0)
[2017-07-08 08:59] LABS: ALB/GLOB RATIO 1.3 (1.1-1.8); ALBUMIN 4.1 g/dL (3.0-4.8); ALT/SGPT 44 U/L (7-56); AST/SGOT 24 U/L (15-39); BLOOD UREA NITROGEN 12 mg/dL (7-21); CALCIUM 8.9 mg/dL (8.4-10.5); GFR AFRICAN-AMERICAN > 60; GFR NON-AFRICAN AMERICAN > 60
[2017-07-08 09:14] LABS: TROPONIN I < 0.01 ng/mL
--- NOTE | 2017-07-08 13:05 | CP.PCM.DIS ---
<CuongKacie - Last Filed: 07/08/17 14:03> Provider - Provider Date of Admission: 07/07/17 18:45 Attending physician: Tin Bojorquez MD Primary care physician: Yara Wolf MD Consults: Consult: Dr. Sabillon Time Spent in preparation of Discharge (in minutes): 30 Hospital Course - Lab Results Lab Results: Most Recent Lab Values WBC 4.8 10^3/ul (4.5-11.0) 07/08/17 08:30 RBC 4.21 10^6/uL (3.5-6.1) 07/08/17 08:30 Hgb 12.3 g/dL (12.0-16.0) 07/08/17 08:30 Hct 35.6 % (36.0-48.0) L 07/08/17 08:30 MCV 84.6 fl (80.0-105.0) 07/08/17 08:30 MCH 29.2 pg (25.0-35.0) 07/08/17 08:30 MCHC 34.6 g/dl (31.0-37.0) 07/08/17 08:30 RDW 13.5 % (11.5-14.5) 07/08/17 08:30 Plt Count 312 10^3/uL (120.0-450.0) 07/08/17 08:30 MPV 11.1 fl (7.0-11.0) H 07/08/17 08:30 Gran % 39.8 % (50.0-68.0) L 07/08/17 08:30 Lymph % (Auto) 50.4 % (22.0-35.0) H 07/08/17 08:30 [place] % (Auto) 6.7 % (1.0-6.0) H 07/08/17 08:30 Eos % (Auto) 2.5 % (1.5-5.0) 07/08/17 08:30 Baso % (Auto) 0.6 % (0.0-3.0) 07/08/17 08:30 Gran # 1.89 (1.4-6.5) 07/08/17 08:30 Lymph # 2.4 (1.2-3.4) 07/08/17 08:30 [place] # 0.3 (0.1-0.6) 07/08/17 08:30 Eos # 0.1 (0.0-0.7) 07/08/17 08:30 Baso # 0.03 K/mm3 (0.0-2.0) 07/08/17 08:30 PT 10.8 Seconds (9.9-11.8) 07/07/17 18:04 INR 1.00 (0.93-1.08) 07/07/17 18:04 APTT 26.1 Seconds (23.7-30.8) 07/08/17 08:30 D-Dimer, Quantitative 0.94 mg/L FEU (0-0.50) H 07/07/17 18:04 Sodium 139 mmol/L (132-148) 07/08/17 08:30 Potassium 3.7 mmol/L (3.6-5.0) 07/08/17 08:30 Chloride 105 mmol/L (98-107) 07/08/17 08:30 Carbon Dioxide 24 mmol/L (21-33) 07/08/17 08:30 Anion Gap 14 (10-20) 07/08/17 08:30 BUN 12 mg/dL (7-21) 07/08/17 08:30 Creatinine 0.6 mg/dL (0.5-1.4) 07/08/17 08:30 Est GFR ( Amer) > 60 07/08/17 08:30 Est GFR (Non-Af Amer) > 60 07/08/17 08:30 Random Glucose 90 mg/dL (70-110) 07/08/17 08:30 Hemoglobin A1c 5.6 % (4.2-6.5) 07/08/17 09:20 Calcium 8.9 mg/dL (8.4-10.5) 07/08/17 08:30 Magnesium 1.9 mg/dL (1.7-2.2) 07/07/17 18:04 Total Bilirubin 0.6 mg/dL (0.2-1.3) 07/08/17 08:30 AST 24 U/L (15-39) 07/08/17 08:30 ALT 44 U/L (7-56) 07/08/17 08:30 Alkaline Phosphatase 86 U/L (38-133) 07/08/17 08:30 Lactate Dehydrogenase 334 U/L (333-699) 07/07/17 18:04 Total Creatine Kinase 47 U/L (35-230) 07/08/17 08:30 Troponin I < 0.01 ng/mL 07/08/17 08:30 NT-Pro-B Natriuret Pep 81.5 pg/mL (0-450) 07/07/17 18:04 Total Protein 7.4 g/dL (5.8-8.3) 07/08/17 08:30 Albumin 4.1 g/dL (3.0-4.8) 07/08/17 08:30 Globulin 3.2 gm/dL 07/08/17 08:30 Albumin/Globulin Ratio 1.3 (1.1-1.8) 07/08/17 08:30 Triglycerides 77 mg/dL (35-160) 07/07/17 18:04 Cholesterol 225 mg/dL (130-200) H 07/07/17 18:04 LDL Cholesterol Direct 157 mg/dL (0-129) H 07/07/17 18:04 HDL Cholesterol 52 mg/dL (29-60) 07/07/17 18:04 Lipase 61 U/L (23-300) 07/07/17 18:04 TSH 3rd Generation 1.77 mIU/mL (0.46-4.68) 07/08/17 08:45 Urine Color Yellow (YELLOW) 07/07/17 18:30 Urine Appearance Sl cloudy (CLEAR) 07/07/17 18:30 Urine pH 7.0 (4.7-8.0) 07/07/17 18:30 Ur Specific [place] 1.020 (1.005-1.035) 07/07/17 18:30 Urine Protein Negative mg/dL (<30 mg/dL) 07/07/17 18:30 Urine Glucose (UA) Negative mg/dL (NEGATIVE) 07/07/17 18:30 Urine Ketones Negative mg/dL (NEGATIVE) 07/07/17 18:30 Urine Blood Large (NEGATIVE) H 07/07/17 18:30 Urine Nitrate Negative (NEGATIVE) 07/07/17 18:30 Urine Bilirubin Negative (NEGATIVE) 07/07/17 18:30 Urine Urobilinogen 0.2 E.U./dL (<1 E.U./dL) 07/07/17 18:30 Ur Leukocyte Esterase Negative Nahun/uL (NEGATIVE) 07/07/17 18:30 Urine RBC 25 - 30 /hpf (0-2) 07/07/17 18:30 Urine WBC 0 - 2 /hpf (0-6) 07/07/17 18:30 Ur Epithelial Cells 3 - 4 /hpf (0-5) 07/07/17 18:30 - Hospital Course Hospital Course: 46F presented with chest pain that began after chasing after a bus. She said it happened two other times before this past week. Patient's PMH: hyperlipidemia, allergies, and asthma. Patient admitted to palpitations with sharp pain, which was associated chest pains and shortness of breath. Patient states it subsided over a period of time and comes and goes. She stated the pain lasted only for a few minutes. Patient denies Fever, Nausea, vomiting, vomiting, headaches, body ache, vision changes, or other any other complaints at the time. Patient was brought to get a CTA for a positive d-dimer to rule out a PE. FHx: Mother has blood clots in her leg. The patient admits to knowing her family has a history of heart disease. Sister has leukemia SHx: cholecystectomy Allergies: aminophylline, aspirine, banana, diclofenac potassium During her stay, patient had an echocardiogram and a treadmill stress test on . Patient was placed on a Heart Healthy Diet, Troponin I series negative, Stress Test: Negative, d-dimer 0.94, CTA: negative for PE. Labs: Cholesterol 225 LDL 157 HDL 52 Lipase 61 TSH 1.77 Hemoglobin A1c 5.6 PT S&E at bedside. Patient states she's feeling much better. No chest pain, SOB , F/C, N/V. Patient states she was told that she has a young heart after she went through a stress test. Patient mentioned she gets a strange feeling if she sits up too fast or stands too fast after sitting for a long time. Patient told to stay still for a few minutes before moving to another position. To follow with primary care doctor for evaluation of orthostatics. Patient states she has never had any loss of consciousness or syncopal episodes. Patient is cleared by cardiology for discharge and to have outpatient follow up per discretion of Dr. Lino. - Date & Time of H&P Date of H&P: 07/08/17 Time of H&P: 13:05 Discharge Exam - Head Exam Head Exam: NORMAL INSPECTION - Eye Exam Eye Exam: EOMI, Normal appearance - ENT Exam ENT Exam: Mucous Membranes Moist - Neck Exam Neck exam: Full Rom - Respiratory Exam Respiratory Exam: NORMAL BREATHING PATTERN. absent: UNREMARKABLE - Cardiovascular Exam Cardiovascular Exam: REGULAR RHYTHM. absent: Bradycardia, Tachycardia - GI/Abdominal Exam GI & Abdominal Exam: Soft. absent: Bruit, Diminished Bowel Sounds, Tenderness - Extremities Exam Extremities exam: full ROM - Neurological Exam Neurological exam: Alert, Normal Gait, Oriented x3 - Psychiatric Exam Psychiatric exam: Normal Affect, Normal Mood - Skin Skin Exam: Dry, Normal Color, Warm Discharge Plan - Follow Up Plan Condition: FAIR Disposition: HOME/ ROUTINE Patient education suggested?: Yes Instructions: Chest Pain (ED), Chest Pain (DC), Chest Pain (GEN) Additional Instructions: 1. follow up with Dr. Lino in 1 week (for re-evaluation. Orthostatic evaluation , Cholesterol is high, A1c borderline normal) 2. follow up with test engine mechanic per Dr. Lnio in 1 week 3. continue home medications 4 return to ED for symptoms of worsening low blood pressure, chest pain, shortness of breath. Referrals: Yara Wolf MD [Primary Care Provider] - <Tin Bojorquez - Last Filed: 07/08/17 15:15> Provider - Provider Date of Admission: 07/07/17 18:45 Attending physician: Tin Bojorquez MD Primary care physician: Yara Wolf MD Hospital Course - Lab Results Lab Results: Most Recent Lab Values WBC 4.8 10^3/ul (4.5-11.0) 07/08/17 08:30 RBC 4.21 10^6/uL (3.5-6.1) 07/08/17 08:30 Hgb 12.3 g/dL (12.0-16.0) 07/08/17 08:30 Hct 35.6 % (36.0-48.0) L 07/08/17 08:30 MCV 84.6 fl (80.0-105.0) 07/08/17 08:30 MCH 29.2 pg (25.0-35.0) 07/08/17 08:30 MCHC 34.6 g/dl (31.0-37.0) 07/08/17 08:30 RDW 13.5 % (11.5-14.5) 07/08/17 08:30 Plt Count 312 10^3/uL (120.0-450.0) 07/08/17 08:30 MPV 11.1 fl (7.0-11.0) H 07/08/17 08:30 Gran % 39.8 % (50.0-68.0) L 07/08/17 08:30 Lymph % (Auto) 50.4 % (22.0-35.0) H 07/08/17 08:30 [place] % (Auto) 6.7 % (1.0-6.0) H 07/08/17 08:30 Eos % (Auto) 2.5 % (1.5-5.0) 07/08/17 08:30 Baso % (Auto) 0.6 % (0.0-3.0) 07/08/17 08:30 Gran # 1.89 (1.4-6.5) 07/08/17 08:30 Lymph # 2.4 (1.2-3.4) 07/08/17 08:30 [place] # 0.3 (0.1-0.6) 07/08/17 08:30 Eos # 0.1 (0.0-0.7) 07/08/17 08:30 Baso # 0.03 K/mm3 (0.0-2.0) 07/08/17 08:30 PT 10.8 Seconds (9.9-11.8) 07/07/17 18:04 INR 1.00 (0.93-1.08) 07/07/17 18:04 APTT 26.1 Seconds (23.7-30.8) 07/08/17 08:30 D-Dimer, Quantitative 0.94 mg/L FEU (0-0.50) H 07/07/17 18:04 Sodium 139 mmol/L (132-148) 07/08/17 08:30 Potassium 3.7 mmol/L (3.6-5.0) 07/08/17 08:30 Chloride 105 mmol/L (98-107) 07/08/17 08:30 Carbon Dioxide 24 mmol/L (21-33) 07/08/17 08:30 Anion Gap 14 (10-20) 07/08/17 08:30 BUN 12 mg/dL (7-21) 07/08/17 08:30 Creatinine 0.6 mg/dL (0.5-1.4) 07/08/17 08:30 Est GFR ( Amer) > 60 07/08/17 08:30 Est GFR (Non-Af Amer) > 60 07/08/17 08:30 Random Glucose 90 mg/dL (70-110) 07/08/17 08:30 Hemoglobin A1c 5.6 % (4.2-6.5) 07/08/17 09:20 Calcium 8.9 mg/dL (8.4-10.5) 07/08/17 08:30 Magnesium 1.9 mg/dL (1.7-2.2) 07/07/17 18:04 Total Bilirubin 0.6 mg/dL (0.2-1.3) 07/08/17 08:30 AST 24 U/L (15-39) 07/08/17 08:30 ALT 44 U/L (7-56) 07/08/17 08:30 Alkaline Phosphatase 86 U/L (38-133) 07/08/17 08:30 Lactate Dehydrogenase 334 U/L (333-699) 07/07/17 18:04 Total Creatine Kinase 47 U/L (35-230) 07/08/17 08:30 Troponin I < 0.01 ng/mL 07/08/17 14:15 NT-Pro-B Natriuret Pep 81.5 pg/mL (0-450) 07/07/17 18:04 Total Protein 7.4 g/dL (5.8-8.3) 07/08/17 08:30 Albumin 4.1 g/dL (3.0-4.8) 07/08/17 08:30 Globulin 3.2 gm/dL 07/08/17 08:30 Albumin/Globulin Ratio 1.3 (1.1-1.8) 07/08/17 08:30 Triglycerides 77 mg/dL (35-160) 07/07/17 18:04 Cholesterol 225 mg/dL (130-200) H 07/07/17 18:04 LDL Cholesterol Direct 157 mg/dL (0-129) H 07/07/17 18:04 HDL Cholesterol 52 mg/dL (29-60) 07/07/17 18:04 Lipase 61 U/L (23-300) 07/07/17 18:04 TSH 3rd Generation 1.77 mIU/mL (0.46-4.68) 07/08/17 08:45 Urine Color Yellow (YELLOW) 07/07/17 18:30 Urine Appearance Sl cloudy (CLEAR) 07/07/17 18:30 Urine pH 7.0 (4.7-8.0) 07/07/17 18:30 Ur Specific [place] 1.020 (1.005-1.035) 07/07/17 18:30 Urine Protein Negative mg/dL (<30 mg/dL) 07/07/17 18:30 Urine Glucose (UA) Negative mg/dL (NEGATIVE) 07/07/17 18:30 Urine Ketones Negative mg/dL (NEGATIVE) 07/07/17 18:30 Urine Blood Large (NEGATIVE) H 07/07/17 18:30 Urine Nitrate Negative (NEGATIVE) 07/07/17 18:30 Urine Bilirubin Negative (NEGATIVE) 07/07/17 18:30 Urine Urobilinogen 0.2 E.U./dL (<1 E.U./dL) 07/07/17 18:30 Ur Leukocyte Esterase Negative Nahun/uL (NEGATIVE) 07/07/17 18:30 Urine RBC 25 - 30 /hpf (0-2) 07/07/17 18:30 Urine WBC 0 - 2 /hpf (0-6) 07/07/17 18:30 Ur Epithelial Cells 3 - 4 /hpf (0-5) 07/07/17 18:30 Attending/Attestation - Attestation I have personally seen and examined this patient.: Yes I have fully participated in the care of the patient.: Yes I have reviewed all pertinent clinical information, including history, physical exam and plan: Yes Notes (Text): 07/08/17 15:09 Attending note: Patient seen and examined with resident. patient is a 46 year old female presented with chest pain that began after chasing after a bus. admitted to telemetry and monitored. CE negative. Stress test prelim negative. Patient was seen by Cardiology DR. Romano. dc home today. FU with PMD DR. Wolf in 1 week. Diagnosis: chest pain GERD
[2017-07-08 13:16] VITALS: BP 126/65; RESP 18; TEMP 98.7
--- NOTE | 2017-07-08 14:33 | CARD ---
APPROVED REPORT Protocol: KADEN Test Type: Sestamibi Stress Test Attending Physician: Dr. Maxime Sabillon Referring Physician: Dr. Yara Wolf Test Indications: Chest Pain Height:4 ft 11 in Weight:155lbs Medications: Pepcid,Heparin, K-Dur Medical History: 46 y/o female. Hx of chest pain, asthma, palpitations,high cholesterol. Target HR: 175 bpm Resting ECG: RSR. Resting Heart Rate: 85 bpm Resting Blood Pressure: 120/90mmHg Submaximum (85%): 149 bpm POST EXERCISE Reason for Termination: Fatigue Target HR: No Max HR: 155 bpm 88% of Maximum Predicted HR: 175 bpm Exercise duration: 07:49 min:sec, 3 Stage Exercise capacity: 9.8METs Max Blood Pressure: 150/80mmHg Blood Pressure response to exercise: normal resting BP - appropriate response Heart Rate response to exercise: appropriate Chest Pain: No, none Angina index: 0 Arrhythmia: No, none ST Change: No, none Deviation: 0 mm TEST SUMMARY [id number]/.0. [id number]/90.0. PRETESTHYPERV.00:[id number]/90.0. PRETESTWARM-UP02:[id number]/90.0. EXERCISESTAGE 103:[id number]/.0. EXERCISESTAGE 203:[id number]/80.0. EXERCISESTAGE 301:[id number]/80.0. [id number]/70.0. INTERPRETATION Stress EKG Conclusion: MYOVIEW NUCLEAR STRESS TEST STOPPED AFTER 7 MINUTES AND 49 SECONDS OF KADEN PROTOCOL DUE TO FATIGUE. PATIENT ACHIEVED 89% OF PREDICTED HEART RATE. NO CHEST PAIN. NO ST-T CHANGES. NUCLEAR SCAN REPORT PENDING. Signed by Maxime Sabillon Electronically Approved: 07/08/2017 11:42:25 EXAM: Myocardial Perfusion REST/STRESS Stress Test Type: Exercise Treadmill Imaging Protocol Rest Spect myocardial perfusion imaging was performed in supine position 36 minutes following the injection of 10.6 mCi of Tc-99 Myoview. At peak stress, the patient was injected intravenously with 30.8mCi of Tc-99 tetrofosmin after an exercise time of 7 minutes and 49 seconds. Gated Stress Spect was performed 45 minutes after intravenous Tc-99 Myoview injection. The images were gated to evaluate regional wall motion and calculate ventricular ejection fraction.Images were reconstructed using backfilter projection method in short horizontal and verticle long axis. Spect slices were generated. LV Perfusion The quality of the study is good. The left ventricle is normal in size. The right ventricle is unremarkable. The lung uptake is normal. The distribution of tracer reveals mildly and diffusely decreased perfusion involving mid to distal anterior wall on the stress study. The remainder of the LV myocardium is unremarkable. The rest myocardial perfusion study shows no significant change. Wall Motion Wall motion study shows good contractility of the left ventricle. LVEF = 55%. Conclusion 1. Essentially normal SPECT myocardial perfusion study. 2. Fixed, anterior defect is most likely due to breast attenuation. 3. Normal gated wall motion of the left ventricle.
--- NOTE | 2017-07-08 17:18 | CARD ---
APPROVED REPORT EXAM: Two-dimensional and M-mode echocardiogram with Doppler and color Doppler. INDICATION Chest Pain LVFX 2D DIMENSIONS Left Atrium (2D)4.2 (1.6-4.0cm)IVSd0.7 (0.7-1.1cm) LVDd4.5 (3.9-5.9cm)PWd0.9 (0.7-1.1cm) LVDs3.2 (2.5-4.0cm)FS (%) 28.6 % LVEF (%)55.4 (>50%) M-Mode DIMENSIONS Aortic Root2.80 (2.2-3.7cm)Aortic Cusp Exc.1.50 (1.5-2.0cm) Aortic Valve AoV Peak Cxxqrftm453.0cm/[place] Peak GR.10mmHg Mitral Valve MV E Tkladncl03.6cm/sMV A Vcgyszrd01.5cm/sE/A ratio0.9 TDI Lateral E' Peak V8.48cm/sMedial E' Peak V5.07cm/sE/Lateral E'5.7 E/Medial E'9.6 Pulmonary Valve PV Peak Pwvoedte36.6cm/sPV Peak Grad.2mmHg Tricuspid Valve TR Peak Mwdvoofo666ej/sRAP [id number] Peak Gr.20mmHg [id number] LEFT VENTRICLE The left ventricle is normal size. There is normal left ventricular wall thickness. The left ventricular function is normal.EF-55-60% There is normal LV segmental wall motion. Transmitral Doppler flow pattern is Grade III-reversible restrictive diastolic dysfunction. No left ventricle thrombus noted on this study. There is no ventricular septal defect visualized. There is no left ventricular aneurysm. There is no mass noted in the left ventricle. RIGHT VENTRICLE The right ventricle is normal size. There is normal right ventricular wall thickness. The right ventricular systolic function is normal. ATRIA The left atrium is mildly dilated. The right atrium size is normal. The interatrial septum is intact with no evidence for an atrial septal defect. AORTIC VALVE The aortic valve is normal in structure. No aortic regurgitation is present. There is no aortic valvular stenosis. There is no aortic valvular vegetation. MITRAL VALVE The mitral valve is thickened but opens well. Mitral regurgitation is trace to mild. There is no mitral valve stenosis. There is no evidence of mitral valve prolapse. TRICUSPID VALVE The tricuspid valve leaflets are thickened , but open well. There is trace to mild tricuspid regurgitation.RVSP-30 mmofHg There is no tricuspid valve stenosis. There is no tricuspid valve prolapse or vegetation. PULMONIC VALVE The pulmonary valve is normal in structure. There is trace to mild pulmonic valvular regurgitation. There is no pulmonic valvular stenosis. GREAT VESSELS The aortic root is normal in size. The ascending aorta is normal in size. The pulmonary artery is normal. The IVC is normal in size and collapses >50% with inspiration. PERICARDIAL EFFUSION There is no pleural effusion. There is no pericardial effusion. <Conclusion> The left ventricle is normal size. There is normal left ventricular wall thickness. The left ventricular function is normal.EF-55-60% No aortic regurgitation is present. Mitral regurgitation is trace to mild. There is trace to mild tricuspid regurgitation.RVSP-30 mmofHg There is no pericardial effusion. Nvegetation or thrombus noted.
--- NOTE | 2017-07-08 19:05 | CON ---
DATE: 07/08/2017 REASON FOR CONSULTATION: Followup chest pain. BRIEF CLINICAL HISTORY: A 46-year-old female with no significant past medical history except family history of coronary artery disease and stated she was a trying to catch the bus, [place], when she got in the bus she felt chest pain like skipped beat and throbbing sensation in the chest with chest pain. She described the chest pain as hard to describe, but she feel inside that heart is skipping. Three hours from now, the patient has like a fast beat, but nothing monitored and nothing was recorded in the telemetry and chest pain was sharp and like a palpitation. PAST MEDICAL HISTORY: Nothing significant diabetes, hypertension,or hyperlipidemia. PAST SURGICAL HISTORY: Significant for cholecystectomy a couple of years ago. FAMILY HISTORY: Significant for mother has a coronary artery disease, enlarged heart and blood clot in the leg. Elder sister has a heart problem with weakness of the heart muscle and also history of leukemia. ALLERGIES: SHE IS ALLERGIC TO AMINOPHYLLINE, ASPIRIN, BANANA, DICLOFENAC AND POTASSIUM. SOCIAL HISTORY: Denies *------* history of alcohol abuse. REVIEW OF SYSTEMS: As per HPI and negative except HPI. PHYSICAL EXAMINATION: VITAL SIGNS: Temperature afebrile, heart rate of 83, and blood pressure of 131/66. HEENT: PERRLA. Extraocular muscles are intact. NECK: Supple. No carotid bruit. No thyromegaly. CHEST: Clear to auscultation. HEART: S1 and S2 regular. ABDOMEN: Soft. EXTREMITIES: Clubbing and cyanosis negative. DIAGNOSTIC LABORATORY DATA: EKG shows normal sinus and no acute ST-T changes noted. LABORATORY DATA: Blood workup as follows: WBC of 5.6, hemoglobin of 11.8, hematocrit of 34.7, platelet count of 304. Chemistry shows sodium of 140, potassium of 3.4, chloride of 103, carbon dioxide of 26, anion gap of 14, BUN of 19, and creatinine of 0.7. Troponin is 0.01 x2 negative. IMPRESSION AND PLAN: A 46-year-old female with no significant past medical history except for strong family history of coronary artery disease admitted yesterday with the chest pain. Though so far troponin is negative, no evidence of acute myocardial infarction, but given the multiple risk factors of coronary artery disease, he was recommended stress test, lipid profile, and TSH also. I will get hemoglobin A1c. The patient has a low potassium, continue to take K-Dur, but THE PATIENT STATES THAT SHE IS ALLERGIC TO K-Dur AND ALSO ALLERGIC TO BANANA. We will give oranges to supplement potassium and we get the stress test and echo. Further recommendation after the finding initial workup and hospital course. We will follow with you. We will keep n.p.o. for her stress test now. Thank you *------* for the opportunity of taking care of your patient, Justin [place]. Maxime Romano MD
== END 2017-07-08 16:24 | disposition home or self-care (01) ==
LOC: ED 17:31 → ERH 18:45 → 2RNO 23:59
PROVIDERS: ADMIT Internal Medicine; ATTEND Internal Medicine
DX: K21.9 Gastro-esophageal reflux disease without esophagitis (principal); R07.9 Chest pain, unspecified; E11.9 Type 2 diabetes mellitus without complications; E78.5 Hyperlipidemia, unspecified; I11.9 Hypertensive heart disease without heart failure; I51.7 Cardiomegaly; J45.909 Unspecified asthma, uncomplicated; Z80.6 Family history of leukemia; Z82.49 Family history of ischemic heart disease and other diseases of the circulatory system; Z90.49 Acquired absence of other specified parts of digestive tract; Z88.6 Allergy status to analgesic agent; Z88.0 Allergy status to penicillin; Z91.013 Allergy to seafood; Z88.8 Allergy status to other drugs, medicaments and biological substances; Z91.018 Allergy to other foods; R40.2412 Glasgow coma scale score 13-15, at arrival to emergency department; D64.9 Anemia, unspecified
CPT/HCPCS: 36415; 71010; 71275; 78452; 80053; 80061; 81001; 82550; 83036; 83615; 83690; 83735; 83880; 84443; 84484; 85025; 85378; 85610; 85730; 93005; 93017; 93306; 96372; 99285; A9502; G0378; J1644; Q9967